=== PATIENT | female | born 1995 | race Caucasian/White ===

== ENCOUNTER → 2019-06-28 | Outpatient (CLI) | payer BC, OTHER ==
--- NOTE | 2019-06-28 10:47 | REP ---
Clinical: Contusion. Technique: Internal rotation, external rotation, and Y view of the right shoulder. Findings: Mildly angulated transverse fracture of the mid clavicular shaft noted. Acromioclavicular and glenohumeral joint as well as surrounding soft tissues of the shoulder appear normal. Impression: 1. Mid clavicular shaft fracture. Electronically Signed by Donte Ramos MD 06/28/2019 10:39 A
--- NOTE | 2019-06-28 10:49 | REP ---
Clinical: Contusion. Technique: AP and angled views of the right clavicle. Findings: There is a mildly angulated mid clavicular shaft fracture. The acromioclavicular and sternoclavicular joints are intact. Impression: Mid clavicular shaft fracture. Electronically Signed by Donte Ramos MD 06/28/2019 10:40 A
== END ==
LOC: M ADAMS 09:51
PROVIDERS: ATTEND Physician Assistant
DX: S42.024A Nondisplaced fracture of shaft of right clavicle, initial encounter for closed fracture (principal)